=== PATIENT | female | born 1935 | race Caucasian/White ===

== ENCOUNTER 2023-11-17 11:48 | Emergency (ER) | payer MEDICARE, OTHER, SELFPAY ==
[2023-11-17 11:50] VITALS: BP 122/52
--- NOTE | 2023-11-17 13:12 | EDRN ---
Michell MORGAN in room w/pt at this time.
--- NOTE | 2023-11-17 13:22 | ED.GENMED ---
History of Present Illness
General
Chief Complaint: Cough
Source: patient
Exam Limitations: none
Time Seen by Provider: 11/17/23 13:08
Travel History
Have you had any contact with someone who has COVID-19?: No
Do you have any symptoms of coronavirus? Fever > 100 degrees, chills, cough, shortness of breath, sore throat, loss of taste or smell, muscle aches, or headache?: No
History of Present Illness
History of Present Illness:
88-year-old female presents with daughter who provides most of the history with complaints of coughing and weakness over the past 2 to 3 weeks. She had a fever at the onset of her illness and was started on cefprozil and azithromycin. She finished
this course of antibiotics. She has a history of asthma and is followed by pulmonology. She had an x-ray performed at the onset of illness which was negative. She has been since using her Trelegy inhaler as well as her albuterol rescue inhaler.
She denies any significant leg swelling or weight gain. The cough seems to be worse at night. The fever has resolved. She notes an overall weakness. She is anticoagulated with Eliquis. No chest pain. No other complaints at this time
Past History
Past History
ED Past Medical History: Cancer (Thyroid), HTN, Hypercholesterolemia and Other (DVT)
ED Past Surgical History: Other (Partial thyroidectomy)
Social History
Tobacco: Non-smoker
Alcohol: None
Drug: None
Living: with family
Phy Exam
Physical Exam
Physical Exam:
General: Well-appearing female no acute respiratory distress
HEENT: Normocephalic atraumatic
Heart: Regular rate and rhythm no murmurs
Lungs: coarse bilaterally no obvious wheeze
Extremities: No cyanosis mild edema bilateral lower extremities
Course
Orders/Labs/Results
Orders:
Orders
11/17/23 13:21
CR Chest - 2 Views Urgent
Comment:
Reason For Exam: cough
11/17/23 13:26
Ipratropium/Albuterol Sulfate [Duoneb] 3 ml INH R NOW ONE
11/17/23 13:45
Complete Blood Count/With Diff Urgent
Comprehensive Metabolic Panel Urgent
NT-proBNP Urgent
Abnormal Lab Results
11/17/23
13:45
RBC 3.49 L 10^6/uL
(4.20-5.40)
Hgb 10.4 L g/dL
(12.0-16.0)
Hct 30.7 L %
(37.0-47.0)
RDW 15.2 H %
(11.5-14.5)
Monocytes % 10.4 H %
(1.7-9.3)
BUN 32 H mg/dl
(7-17)
Glucose 148 H mg/dl
(70-99)
Total Protein 5.8 L g/dl
(6.3-8.2)
11/17/23 13:45
11/17/23 13:45
Vital Signs
Initial and Last Documented VS:
Initial Vital Signs
Temp Pulse Resp BP Pulse Ox
98.6 F 63 16 122/52 97
11/17/23 11:50 11/17/23 11:50 11/17/23 11:50 11/17/23 11:50 11/17/23 11:50
Last Documented Vital Signs
Temp Pulse Resp BP Pulse Ox
98.6 F 64 16 141/54 94
11/17/23 11:50 11/17/23 15:00 11/17/23 15:00 11/17/23 15:00 11/17/23 15:00
MDM/Problems Addressed
Differential Diagnosis Includes:
Cough and weakness over the past 2 to 3 weeks. Treated for pneumonia at the onset of the illness. Not hypoxic no distress. Unlikely to be PE in the setting of ongoing Eliquis use. Will obtain repeat chest x-ray try DuoNeb and check BMP
*Critical Care Note
Total Time (30-74mins, 75-104mins- exclusive of procedures): Not Applicable
Update Note
Update Note:
Chest x-ray personally reviewed without acute finding. Patient reexamined nontoxic no respiratory distress admits to some relief after the DuoNeb. Suspect resolving bronchitis. She has been treated with antibiotics. She was just prescribed a
nebulizer by her industrial relations specialist. I recommended she use this. No reason for admission at this time.
ED Attending Note
-
Portions of this chart may have been created with voice recognition software.� Occasional wrong word or��sound alike� substitutions may have occurred due to the inherent limitations of voice recognition software.
Discharge Plan
Departure
Patient Disposition: Home (Routine Discharge)
Date of Disposition: 11/17/23
Time of Disposition: 15:54
Patient with high blood pressure during this ER visit?: No
Discharge Problem:
Cough
Instructions: Acute Bronchitis, Adult (DC)
Prescriptions:
No Action
multivitamin Tablet
1 tab PO DAILY
clonidine HCl 0.1 mg Tablet
0.1 mg PO PRN PRN (Reason: high BP)
labetalol 200 mg Tablet
200 mg PO TID
clonidine 0.2 mg/24 hr Patch Weekly
1 patch TRANSDERMAL QWEEK
meclizine 12.5 mg Tablet
12.5 mg PO PRN PRN (Reason: low BP)
amlodipine 5 mg Tablet
5 mg PO DAILY
levothyroxine 25 mcg Tablet
25 mcg PO DAILY
fluticasone propion-salmeterol [Advair Diskus] 100-50 mcg/dose Blister With Device
1 inh INHALATION Q12H
zolpidem 10 mg Tablet
10 mg PO HS
albuterol sulfate [Ventolin HFA] 90 mcg/actuation Hfa Aerosol Inhaler
1 inh INHALATION PRN PRN (Reason: SOB)
losartan-hydrochlorothiazide 50-12.5 mg Tablet
1 tab PO BID
escitalopram oxalate 10 mg Tablet
10 mg PO DAILY
cholecalciferol (vitamin D3) [Vitamin D3] 25 mcg (1,000 unit) Tablet
25 mcg PO DAILY
Eliquis 5 mg Tablet
5 mg PO BID
pravastatin 20 mg Tablet
20 mg PO HS
prednisone 20 mg tablet
40 mg PO DAILY 5 Days Qty: 10 0RF
Referrals:
Kim Mejía MD [Family Provider] -
Activity Restrictions/Additional Instructions:
Use your inhalers and nebulizers as directed. Stay hydrated. Return here for worsening symptoms otherwise follow-up with your treating physicians
Interventions
Interventions:
*Risk Screen - Suicide Last Done: 11/17/23 13:40
*General Assessment Last Done: 11/17/23 13:40
*Neglect/Abuse Screening Last Done: 11/17/23 13:40
ED- Fall Risk Assessment Last Done: 11/17/23 13:40
*ED COVID-19 Vaccine History Last Done: 11/17/23 13:40
ED- Pulmonary Assessment Last Done: 11/17/23 13:40
[2023-11-17 13:40] VITALS: BP 147/54; BMI 40.0
[2023-11-17] MEDS: DUONEB 3 ML INH (13:40)
[2023-11-17 14:00] VITALS: BP 141/60
[2023-11-17 14:03] LABS: % Basophils 0.4 % (0-2); % Eosinophils 1.5 % (0-6); % Immature Granulocytes 0.4 % (0-0.5); % Lymphocytes 24.2 % (20.5-51.1); % Monocytes 10.4 % (1.7-9.3); % Neutrophils 63.1 % (42.2-75.2); Absolute Eosinophils 0.1 10^3/uL (0-0.7); Absolute Lymphocytes 1.3 10^3/uL (1.2-3.4); Absolute Monocytes 0.6 10^3/uL (0.1-0.6); Absolute Neutrophils 3.5 10^3/uL (1.4-6.5); Hematocrit 30.7 % (37.0-47.0); Hemoglobin 10.4 g/dL (12.0-16.0); Mean Corp Hgb Conc. 33.9 g/dL (33.0-37.0); Mean Corpuscular Hgb 29.8 pg (27.0-31.0); Nucleated Red Blood Cells % 0 %; Platelet Count 222 10^3/uL (130-400); Red Blood Cell Count 3.49 10^6/uL (4.20-5.40); Red Cell Dist. Width 15.2 % (11.5-14.5); White Blood Cell Count 5.5 10^3/uL (4.8-10.8)
[2023-11-17 14:14] LABS: ALT (SGPT) 16 U/L (0-35); AST (SGOT) 19 U/L (14-36); Albumin 3.8 g/dl (3.5-5.0); Alkaline Phosphatase 55 U/L (38-126); Blood Urea Nitrogen 32 mg/dl (7-17); Carbon Dioxide 26 mmol/L (22-30); Chloride 103 mmol/L (98-107); Glucose 148 mg/dl (70-99); Potassium 3.9 mmol/L (3.5-5.1); Sodium 140 mmol/L (135-145); Total Protein 5.8 g/dl (6.3-8.2); eGFR > 60.00
[2023-11-17 14:24] LABS: NT-proBNP 612 pg/ml
[2023-11-17 15:00] VITALS: BP 141/54
[2023-11-17 16:00] VITALS: BP 158/72
== END 2023-11-17 16:30 | disposition home or self-care (01) ==
LOC: EMR 11:48
PROVIDERS: Physician Assistant; EMERGENCY PHYSICIAN Emergency Medicine; FAMILY PHYSICIAN Family Medicine
DX: R05.9 Cough, unspecified (principal); R53.1 Weakness; I10 Essential (primary) hypertension; E78.00 Pure hypercholesterolemia, unspecified; J45.909 Unspecified asthma, uncomplicated; Z79.01 Long term (current) use of anticoagulants; Z85.850 Personal history of malignant neoplasm of thyroid; Z86.718 Personal history of other venous thrombosis and embolism; Z88.8 Allergy status to other drugs, medicaments and biological substances; Z91.018 Allergy to other foods
CPT/HCPCS: 99283; 94640; 71046; 80053; 83880; 85025

== ENCOUNTER 2024-06-20 16:41 | Emergency (ER) | payer MEDICARE, OTHER, SELFPAY ==
[2024-06-20 16:53] VITALS: BP 138/65
--- NOTE | 2024-06-20 18:08 | ED.MUSCINJ ---
HPI-Injury
General
Chief Complaint: Musculo-Skeletal Complaint
Source: patient
Exam Limitations: none
Time Seen by Provider: 06/20/24 17:51
History of Present Illness-Injury
Initial Injury comments:
88-year-old female presents for evaluation of left ankle injury. She got up throughout the night last evening and twisted her ankle. She notes pain along the lateral aspect of the ankle. Initially seen at the urgent care and sent here for further
evaluation. She is anticoagulated on Eliquis. No head strike. No other complaints
Past History
Past History
ED Past Medical History: Cancer (Thyroid), HTN, Hypercholesterolemia and Other (DVT)
ED Past Surgical History: Other (Partial thyroidectomy)
Social History
Tobacco: Non-smoker
Alcohol: None
Drug: None
Living: with family
Phy Exam
Physical Exam
Physical Exam:
General: Well-appearing female no acute respiratory distress
HEENT: Normocephalic atraumatic
Musculoskeletal exam: Left ankle without any obvious swelling. She is tender over the anterior lateral aspect of the ankle inferior and medial to the lateral malleolus. The medial malleolus is nontender. She has good dorsiflexion and
plantarflexion. She has good resistance to eversion and inversion of the foot. The ankle is stable to her drawer test.
MDM/Problems Addressed
Differential Diagnosis Includes:
Left ankle pain. I have visualized x-rays that were taken at the urgent care. There is no evidence of acute fracture. There is concern for possible occult injury on the urgent care's behalf however based on exam I suspect more of a soft tissue
injury such as a sprain. Considered CT of the ankle however not indicated at this time family comfortable with not ordering 1. She has a shoe and an Aircast for support which I advised to use. Advised elevation and Tylenol. Stable for discharge
with orthopedic follow-up
*Critical Care Note
Total Time (30-74mins, 75-104mins- exclusive of procedures): Not Applicable
ED Attending Note
-
Portions of this chart may have been created with voice recognition software.� Occasional wrong word or��sound alike� substitutions may have occurred due to the inherent limitations of voice recognition software.
Discharge Plan
Departure
Patient Disposition: Home (Routine Discharge)
Date of Disposition: 06/20/24
Time of Disposition: 18:10
Patient with high blood pressure during this ER visit?: No
Discharge Problem:
Ankle sprain
Instructions: Muscle and Bone Pain (DC)
Prescriptions:
No Action
multivitamin Tablet
1 tab PO DAILY
clonidine HCl 0.1 mg Tablet
0.1 mg PO PRN PRN (Reason: high BP)
labetalol 200 mg Tablet
200 mg PO TID
clonidine 0.2 mg/24 hr Patch Weekly
1 patch TRANSDERMAL QWEEK
meclizine 12.5 mg Tablet
12.5 mg PO PRN PRN (Reason: low BP)
amlodipine 5 mg Tablet
5 mg PO DAILY
levothyroxine 25 mcg Tablet
25 mcg PO DAILY
fluticasone propion-salmeterol [Advair Diskus] 100-50 mcg/dose Blister With Device
1 inh INHALATION Q12H
zolpidem 10 mg Tablet
10 mg PO HS
albuterol sulfate [Ventolin HFA] 90 mcg/actuation Hfa Aerosol Inhaler
1 inh INHALATION PRN PRN (Reason: SOB)
losartan-hydrochlorothiazide 50-12.5 mg Tablet
1 tab PO BID
escitalopram oxalate 10 mg Tablet
10 mg PO DAILY
cholecalciferol (vitamin D3) [Vitamin D3] 25 mcg (1,000 unit) Tablet
25 mcg PO DAILY
Eliquis 5 mg Tablet
5 mg PO BID
pravastatin 20 mg Tablet
20 mg PO HS
prednisone 20 mg tablet
40 mg PO DAILY 5 Days Qty: 10 0RF
Referrals:
JERRY DINH [Other]
Activity Restrictions/Additional Instructions:
Elevate for swelling. Use Tylenol for pain. Use your shoe and Aircast for support. Return if worse otherwise follow-up with orthopedics if symptoms persist
Interventions
Interventions:
*Risk Screen - Suicide Last Done: 06/20/24 16:56
*General Assessment Last Done: 06/20/24 16:56
*Neglect/Abuse Screening Last Done: 06/20/24 16:56
ED-Musculoskeletal Assessment Last Done: 06/20/24 17:42
Discharge Date and Time
Print Language: FRENCH
== END 2024-06-20 18:41 | disposition home or self-care (01) ==
LOC: EMR 16:41
PROVIDERS: EMERGENCY PHYSICIAN Emergency Medicine
DX: S93.402A Sprain of unspecified ligament of left ankle, initial encounter (principal); X50.1XXA Overexertion from prolonged static or awkward postures, initial encounter; I10 Essential (primary) hypertension; E78.00 Pure hypercholesterolemia, unspecified; Z79.01 Long term (current) use of anticoagulants; Z86.718 Personal history of other venous thrombosis and embolism; Z85.850 Personal history of malignant neoplasm of thyroid; Z88.8 Allergy status to other drugs, medicaments and biological substances; Z91.018 Allergy to other foods
CPT/HCPCS: 99282